=== PATIENT | male | born 1935 | race Hispanic/Latino ===

== ENCOUNTER 2020-07-27 05:37 | Day surgery (SDC) | payer OTHER ==
[2020-07-25 13:12] LABS: BASOPHILS % (AUTO) 0.7 % (0.0-5.0); EOSINOPHILS % (AUTO) 4.8 % (0.0-8.0); HEMATOCRIT 35.1 % (42-54); LYMPHOCYTES % (AUTO) 42.3 % (21.0-51.0); MEAN CORPUSCULAR HEMOGLOBIN 28.6 pg (27.0-33.0); MEAN CORPUSCULAR HGB CONC 32.2 g/dL (32.0-36.0); MEAN CORPUSCULAR VOLUME 88.9 fL (79-99); NEUTROPHILS % (AUTO) 45.1 % (40.0-77.0); PLATELET COUNT (AUTO) 141 K/uL (130-400); RED BLOOD CELL COUNT(AUTO) 3.95 MIL/uL (4.50-6.20); RED CELL DISTRIBUTION WIDTH 13.2 % (11.0-15.5); WHITE BLOOD COUNT (AUTO) 6.7 K/uL (4.8-10.8)
[2020-07-25 13:30] LABS: CREATININE 1.1 mg/dL (0.5-1.5); POTASSIUM 4.9 mmol/L (3.5-5.1)
[2020-07-25 13:32] LABS: INR 1.02 (0.85-1.15); PROTHROMBIN TIME 11.1 SEC (9.6-11.6)
[2020-07-25 13:33] LABS: PARTIAL THROMBOPLASTIN TIME 27.9 SEC (26.3-35.5)
[2020-07-26 11:33] VITALS: BP 140/61
[2020-07-27] VITALS (11 sets, daily range): BP systolic 140–152; BP diastolic 46–66
[~2020-07-27] VITALS: Ht 170.2 cm; Wt 66.3 kg
[~2020-07-27 05:37] MED LIST: AMLO-258 PO; ASPI-1197 PO; OLME40TA18 PO; OMEP20CA12 PO; PRAV40TA3 PO
[2020-07-27] MEDS ORDERED: SODIUM CHLORIDE 0.9% 1000ML 1,000 ML IV ONE (06:52)
[2020-07-27] MEDS ORDERED: MIDAZOLAM HCL 1 MG/ML 2ML VIAL ONE ×2 (09:32→09:57)
[2020-07-27] MEDS ORDERED: LIDOCAINE HCL 1% MDV 50ML VIAL ONE (09:32)
[2020-07-27] MEDS ORDERED: MEPERIDINE-PF 25 MG/ML SYG ONE ×2 (09:32→09:57)
[2020-07-27] MEDS ORDERED: BUPIVACAINE/PF 0.25% 30ML VIAL IJ ONE (09:32)
[2020-07-27] MEDS ORDERED: CEFAZOLIN SODIUM 1 GM VIAL ONE (09:32)
[2020-07-27] MEDS ORDERED: IOHEXOL-350 50ML VIAL IV ONE (10:23)
[2020-07-27] MEDS ORDERED: ACETAMINOPHEN 325 MG TAB ONE (14:25)
[2020-07-27] MEDS ORDERED: ACETAMINOPHEN 325 MG TAB PO PRN (14:30)
[2020-07-27] MEDS ORDERED: CEFAZOLIN SODIUM 1 GM VIAL IVP SCH (16:00)
== END 2020-07-27 17:15 | disposition home or self-care (01) ==
LOC: DAH 05:37
PROVIDERS: ATTEND Internal Medicine Cardiovascular Disease
DX: Z45.010 Encounter for checking and testing of cardiac pacemaker pulse generator [battery] (principal); Z45.018 Encounter for adjustment and management of other part of cardiac pacemaker; I44.2 Atrioventricular block, complete; I49.5 Sick sinus syndrome; Z79.82 Long term (current) use of aspirin; Z79.01 Long term (current) use of anticoagulants; Z79.899 Other long term (current) drug therapy; Z98.890 Other specified postprocedural states; Z88.6 Allergy status to analgesic agent
CPT/HCPCS: 33207; 33233; 36415; 71045; 80048; 85025; 85610; 85730; 93005; A4215; A4216; A4221; A4222; A4223 ×3; A4606; A4663; C1725; C1769; C1785; C1894; C1898; J0690 ×2; J2175 ×2; J2250 ×2; J3490 ×2; J7030 ×2; Q9967; 99156; 99157